=== PATIENT | male | born 1950 | race Caucasian/White ===

== ENCOUNTER 2016-10-22 16:53 | Emergency (ER) | payer OTHER ==
[~2016-10-22] VITALS: Ht 170.2 cm; Wt 83.0 kg
[~2016-10-22 16:53] MED LIST: AMLODIPINE BESYL5 MG PO; ASPIR-LOW81 MG PO; CALCIUM 500 +1 EAC4 PO; CALCIUM CARB1 TABLET PO; HYDROCHLOROTH12.5 M3 PO; HYDROCHLOROTHIA25 MG PO; LORATADINE10 M2 PO; PRAVASTATIN SOD20 MG PO; PRAVASTATIN SOD80 MG PO; RAPAFLO8 MG PO; XARELTO20 MG PO
[2016-10-22 17:44] LABS: MCHC 32.8 G/DL (30.0-36.0); MCV 97.7 FL (86-99); MEAN PLAT.VOLUME 10.2 uM^3 (9.0-12.4); PLATELET COUNT 221 K/uL (156-360); RBC DIS.WIDTH-CV 13.2 % (11.8-14.6); WHITE BLOOD COUNT 7.3 K/uL (4.1-10.2)
[2016-10-22 17:58] LABS: INTER. NORMALIZED RATIO 1.1; PROTHROMBIN TIME 11.6 (9.2-11.2); PTT 29.9 (25-32)
[2016-10-22 18:00] LABS: CHLORIDE 107 mEq/L (99-109); POTASSIUM 3.9 mEq/L (3.7-5.4); SODIUM 142 mEq/L (136-147)
[2016-10-22 18:02] LABS: GLUCOSE 73 mg/dL (70-99)
[2016-10-22 18:03] LABS: ANION GAP 9 MEQ/L (2-14)
[2016-10-22 18:04] LABS: TOTAL BILIRUBIN 0.3 mg/dL (0.0-1.0)
[2016-10-22 18:05] LABS: ALKALINE PHOSPHATASE 65 IU/L (3-129); GFR ESTIMATE (CALCULATED) > 59 mL/min/
[2016-10-22 18:07] LABS: UREA NITROGEN (BUN) 28 mg/dL (9-23)
[2016-10-22] MEDS ORDERED: MIRALAX17 GM PO (21:04)
[2016-10-22] MEDS ORDERED: TRAMADOL HCL50 MG PO (21:04)
[2016-10-22 21:38] VITALS: BP 172/91
[2016-10-22 21:56] LABS: ADD MIUA? YES; BILIRUBIN NEGATIVE; BLOOD SMALL; COLOR YELLOW ((YELLOW)); GLUCOSE (STRIP) NEGATIVE; KETONES NEGATIVE; LEUKOCYTES NEGATIVE; NITRITE NEGATIVE; PROTEIN (STRIP) NEGATIVE; SPECIFIC GRAVITY 1.032 (1.000-1.030); UROBILINOGEN 0.2 MG/DL (0.2-1.0)
[2016-10-22 22:06] LABS: BACTERIA NONE SEEN /HPF; EPITHELIAL CELLS RARE /HPF; MUCUS TRACE /LPF; RED BLOOD CELLS 0-5 /HPF (0-5); UCUL ADDED? NO; WHITE BLOOD CELLS 0-5 /HPF (0-5)
== END 2016-10-22 21:30 | disposition home or self-care (01) ==
LOC: EME 16:53
PROVIDERS: Physician Assistant
DX: K62.89 Other specified diseases of anus and rectum (principal); K59.00 Constipation, unspecified; Z87.891 Personal history of nicotine dependence; E87.5 Hyperkalemia; I10 Essential (primary) hypertension; Z86.73 Personal history of transient ischemic attack (TIA), and cerebral infarction without residual deficits
CPT/HCPCS: 74177; 80053; 81003; 85027; 85610; 85730; 99281; 99284; J7030